=== PATIENT | female | born 1950 | race Caucasian/White ===

== ENCOUNTER 2021-02-25 12:43 | Inpatient (IN) | payer OTHER ==
[~2021-02-25] VITALS: Ht 160 cm; Wt 51.3 kg
[2021-02-25] MEDS ORDERED: XARELTO20 M1 (13:19)
[2021-02-25] MEDS ORDERED: KAPVAY0.1 MG (13:20)
[2021-02-25] MEDS ORDERED: HYDROCHLOROTH12.5 MG (13:20)
[2021-02-25] MEDS ORDERED: TOPROL XL50 M1 (13:21)
[2021-02-25] MEDS ORDERED: LANOXIN125 MCG (13:21)
[2021-02-25] MEDS ORDERED: OMEPRAZOLE MAGN20 MG (13:21)
[2021-02-25] MEDS ORDERED: CARAFATE1 GM (13:22)
[2021-02-25] MEDS ORDERED: PEPCID AC20 MG (13:22)
[2021-02-25] MEDS ORDERED: AMLODIPINE BESYL5 MG (13:23)
--- NOTE | 2021-02-25 13:26 | NUR ---
PTE REFIERE DOLOR ABDOMINAL Y VPMOTOS SE LINDA S/V YS EUBOIAC EN AREA DE OBSERVACION
--- NOTE | 2021-02-25 14:01 | NUR ---
PACIENTE ALERTA Y ORIENTADA EN COMPANIA DE CUIDADORA. SE ORIENTA A PACIENTE SOBRE PROCEDIMIENTO Y TX, REFIERE ENTENDER. SE EXTRAE MUESTRAS DE LABORATORIO CON MEDIDAS ASEPTICAS Y SE COLOCA IVF'S MICHELA ORDEN MEDICA.
--- NOTE | 2021-02-25 19:56 | NUR ---
SE COLOCA BLAS UTILIZANDO MEDIDAS ASEPTICAS Y ESTERILES.
--- NOTE | 2021-02-25 23:25 | NUR ---
SE RECIBE THERESA FEMENINA ALERTA Y ORIENTA EN COMPANIA DE FAMILIAR DEL TURNO ANTERIOR. SE OSBERVA CON BUEN PATRON RESPIRATORIO Y NO REFIERE DOLOR. VENOPUNCION PATENTE SUE DE EDEMA Y ERITEMA RECIBIENDO TERAPIA DE IVFS 0.9NSS BAJANDO A 100ML/HR. PTE CON SONDA URINARIA A GRAVEDAD DRENANDO EGRESO DE ORINA COLOR AMARILLA. PENDIENTE CONSULTA CON Y LABORATORIOS EN LA MANANA.
--- NOTE | 2021-02-26 07:12 | NUR ---
SE RECIBE PTE FEMENAINDE 70 YRS ALERTA CONCIENTE Y TRANQUILA EN MOLINA CON BARABDAS ELEVADA . PTE SE OBSERVA CON FOLIE CATHETE . SE MANTIENENCON IVF'S PATENTE . SE OBSERVA CON FOLIE CATHETE SE MANTIENE BAJO OBSERVACION POR CAMBIOS.
== END 2021-03-06 23:07 | disposition home or self-care (01) | DRG 389 ==
LOC: ER 12:43 → MEDI 02-26 09:04
PROVIDERS: Surgery; ADMIT Internal Medicine; ATTEND Internal Medicine
PROC: BW2110Z Computerized Tomography (CT Scan) of Abdomen and Pelvis using Low Osmolar Contrast, Unenhanced and Enhanced (ICD-10-PCS; 2021-02-26)
PROC: 0DCP8ZZ Extirpation of Matter from Rectum, Via Natural or Artificial Opening Endoscopic (ICD-10-PCS; principal; 2021-03-05 11:00)
DX: K56.41 Fecal impaction (principal); N39.0 Urinary tract infection, site not specified; I69.351 Hemiplegia and hemiparesis following cerebral infarction affecting right dominant side; K29.60 Other gastritis without bleeding; E86.0 Dehydration; I11.9 Hypertensive heart disease without heart failure; E11.9 Type 2 diabetes mellitus without complications; E78.5 Hyperlipidemia, unspecified; Z74.01 Bed confinement status; B96.20 Unspecified Escherichia coli [E. coli] as the cause of diseases classified elsewhere; Z20.822 Contact with and (suspected) exposure to COVID-19

== ENCOUNTER 2021-05-15 14:20 | Inpatient (IN) | payer OTHER ==
[~2021-05-15] VITALS: Ht 160 cm; Wt 49.9 kg
[~2021-05-15 14:20] MED LIST: AMLODIPINE BESYL5 MG; CARAFATE1 GM; HYDROCHLOROTH12.5 MG; KAPVAY0.1 MG; LANOXIN125 MCG; OMEPRAZOLE MAGN20 MG; PEPCID AC20 MG; TOPROL XL50 M1; XARELTO20 M1
[2021-05-20] MEDS ORDERED: PLAVIX75 MG PO (19:02)
[2021-05-20] MEDS ORDERED: KEPPRA500 MG PO (19:02)
== END 2021-05-20 23:23 | disposition home or self-care (01) | DRG 391 ==
LOC: ER 14:20 → MEDJ 05-16 10:03
PROVIDERS: ADMIT Surgery; ATTEND Surgery
PROC: BW21YZZ Computerized Tomography (CT Scan) of Abdomen and Pelvis using Other Contrast (ICD-10-PCS; 2021-05-16)
PROC: BW28ZZZ Computerized Tomography (CT Scan) of Head (ICD-10-PCS; principal; 2021-05-18)
DX: K59.09 Other constipation (principal); I63.89 Other cerebral infarction; G81.91 Hemiplegia, unspecified affecting right dominant side; Z74.01 Bed confinement status; E11.9 Type 2 diabetes mellitus without complications; Z79.4 Long term (current) use of insulin; Z20.822 Contact with and (suspected) exposure to COVID-19; I10 Essential (primary) hypertension

== ENCOUNTER 2021-08-28 11:42 | Inpatient (IN) | payer OTHER ==
[~2021-08-28] VITALS: Ht 152.4 cm; Wt 45.4 kg
[~2021-08-28 11:42] MED LIST changes: +KEPPRA500 MG PO; +PLAVIX75 MG PO
== END 2021-09-05 00:31 | disposition home or self-care (01) | DRG 281 ==
LOC: ER 11:42 → MEDJ 08-29 09:13 → SEC-K 08-29 12:48 → MEDI 08-29 17:36
PROVIDERS: ADMIT Internal Medicine; ATTEND Internal Medicine
PROC: BW2110Z Computerized Tomography (CT Scan) of Abdomen and Pelvis using Low Osmolar Contrast, Unenhanced and Enhanced (ICD-10-PCS; 2021-08-28)
PROC: 4A12X4Z Monitoring of Cardiac Electrical Activity, External Approach (ICD-10-PCS; principal; 2021-08-29)
PROC: B24BZZZ Ultrasonography of Heart with Aorta (ICD-10-PCS; 2021-08-29)
DX: I48.91 Unspecified atrial fibrillation (principal); I21.A1 Myocardial infarction type 2; N39.0 Urinary tract infection, site not specified; I69.859 Hemiplegia and hemiparesis following other cerebrovascular disease affecting unspecified side; E87.6 Hypokalemia; K56.41 Fecal impaction; K52.89 Other specified noninfective gastroenteritis and colitis; I11.0 Hypertensive heart disease with heart failure; E11.9 Type 2 diabetes mellitus without complications; E78.5 Hyperlipidemia, unspecified; Z74.01 Bed confinement status

== ENCOUNTER 2021-09-16 11:44 | Emergency (ER) | payer OTHER ==
[~2021-09-16] VITALS: Ht 162.6 cm; Wt 54.4 kg
[2021-09-16] MEDS ORDERED: LOSARTAN POTASS50 MG PO (11:58)
[2021-09-16] MEDS ORDERED: GLUMETZA500 MG PO (11:59)
[2021-09-16] MEDS ORDERED: KAPSPARGO SPRIN25 MG PO (11:59)
== END 2021-09-16 17:34 | disposition home or self-care (01) ==
LOC: ER 11:44
DX: I16.0 Hypertensive urgency (principal); I63.89 Other cerebral infarction; I48.91 Unspecified atrial fibrillation

== ENCOUNTER 2021-12-16 13:44 | Emergency (ER) | payer OTHER ==
[~2021-12-16] VITALS: Ht 167.6 cm; Wt 49.9 kg
[~2021-12-16 13:44] MED LIST changes: +GLUMETZA500 MG PO; +KAPSPARGO SPRIN25 MG PO; +LOSARTAN POTASS50 MG PO
[2021-12-16] MEDS ORDERED: PEPCID AC20 MG PO (19:50)
[2021-12-16] MEDS ORDERED: ZOFRAN8 MG PO (19:50)
== END 2021-12-16 20:25 | disposition home or self-care (01) ==
LOC: ER 13:44
DX: R10.84 Generalized abdominal pain (principal); R11.2 Nausea with vomiting, unspecified; Z20.822 Contact with and (suspected) exposure to COVID-19; Z88.6 Allergy status to analgesic agent; Z91.013 Allergy to seafood; I10 Essential (primary) hypertension